=== PATIENT | female | born 2000 | race Hispanic/Latino ===

== ENCOUNTER → 2024-03-05 15:08 | Outpatient (CLI) | payer OTHER, MEDICAID, SELFPAY ==
--- NOTE | 2024-03-05 | DI.MRI.S_ITS ---
PROCEDURE: MR PELVIS WO/W CON INDICATIONS: scar conditions and fibrosis TECHNIQUE: Coronal HASTE, sagittal breath-hold T2 FSE; axial T1 FSE with and without fat saturation through the pelvis. Optional long- and short-axis uterine nonbreath-hold T2 FSE through the uterus. Sagittal or axial dynamic VIBE during administration of contrast. Post-contrast axial or coronal VIBE/2-D FLASH with fat saturation from the iliac crests to the symphysis. Optional diffusion weighted imaging and ADC may be performed. COMPARISON: None. FINDINGS: Image quality: Diagnostic Lower abdomen: No small bowel obstruction in the lower abdomen. No pathologic ascites Bladder: Under distended, overall unremarkable Reproductive organs: 2.8 x 1.7 cm right anterior vaginal wall cystic lesion without internal enhancement. The cervix is unremarkable. Endometrium appears unremarkable. Lower uterine segment anterior wall myometrial thinning, consistent with prior . Tiny outpouching in the endometrium endometrium is overall nonthickened. Junctional zone is nonthickened. Right multiple air follicles are seen. On precontrast T1 weighted imaging, there is no evidence of deep pelvic active endometriosis deposits. Suspected IUD is present. Rectum: Moderate distal colon, and rectal fecal and gas burden. Vessels and lymph nodes: No aneurysmal vessel. No pathologic lymph nodes by size criteria Pelvic wall: At site of anterior pelvic wall scar, no fluid collection or discrete mass is identified. Imaging evidence of scarring is present. No evidence of a endometriosis deposit that is intrinsically T1 hyperintense. No discrete hernia on this non dynamic study. Small fat containing umbilical hernia Bones: No acute fracture or focal suspicious lesion. IMPRESSION: Lower uterine segment sequelae of with myometrial thinning and tiny endometrial outpouching (01/10). In the anterior pelvic wall, there is scarring, without discrete fluid collection mass, or hernia. No intrinsic T1 signal to suggest an active endometriosis deposit. Small fat containing umbilical hernia. Incidentally noted 2.8 x 1.7 cm right anterior vaginal wall cystic lesion without significant internal enhancement, differential includes a Héctor duct cyst. Other findings above. Approved by: Anders Mckeon M.D. on 03/06/2024 at 8:49
== END ==
LOC: MRI 15:10
PROVIDERS: Referring Provider Registered Nurse; Visit Provider Registered Nurse
DX: L90.5 Scar conditions and fibrosis of skin (principal); K42.9 Umbilical hernia without obstruction or gangrene; N89.8 Other specified noninflammatory disorders of vagina; R52 Pain, unspecified
CPT/HCPCS: 72197; A9579